=== PATIENT | male | born 1995 | race Caucasian/White ===

== ENCOUNTER 2017-01-21 20:49 | Emergency (ER) | payer OTHER ==
[~2017-01-21] VITALS: Ht 185.4 cm; Wt 96.2 kg
[2017-01-21 21:10] VITALS: BP 166/81
--- NOTE | 2017-01-21 21:49 | RADIOLOGY REPORT ---
EXAMINATION: Left fifth finger CLINICAL INFORMATION: Crush injury. Swelling. Nail avulsion COMPARISON: None TECHNIQUE: Three views of the left fifth finger. FINDINGS: There is a bandage over the left fifth finger distally. No fracture. No dislocation. Multiple small radiopaque foreign bodies seen over the nailbed IMPRESSION: Multiple small radiopaque foreign body seen over the nailbed. No acute osseous abnormality.
--- NOTE | 2017-01-21 21:55 | ED HAND/WRIST INJURY COMPLAINT ---
History of Present Illness General Chief Complaint: General Adult Stated Complaint: "LT PINK NAIL RIPPED OFF" Source: patient, family Exam Limitations: no limitations Vital Signs & Intake/Output Vital Signs & Intake/Output Vital Signs Date Time Temp Pulse Resp B/P B/P Pulse O2 O2 Flow FiO2 Mean Ox Delivery Rate 01/210 98.6 70 18 166/81 98 Room Air ED Intake and Output 01/22 0000 01/21 1200 Intake Total Output Total Balance Patient 212 lb Weight Weight Reported by Patient Measurement Method Allergies Coded Allergies: NO KNOWN ALLERGIES (01/21/17) Reconcile Medications No Known Home Medications Triage Note: 21M ARRIVES WITH CRUSH INJURY TO L PINKY FINGER AND AVULSION TO NAILBED WITH ENTIRE NAIL GONE. PAIN 1/10 AT THIS TIME. DECLINES PAIN MEDS OFFERED IN TRIAGE. 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 +SENSATION AND MOTION TO DIGIT. 02/14/08 WAS LAST TETANUS. +SENSATION AND MOTION TO DIGIT. 02/14/08 WAS LAST TETANUS. Triage Nurses Notes Reviewed? yes Occurred: just prior to arrival Duration: hour(s): (3-4), constant, continues in ED Timing: single episode today Injury Environment: home Severity: mild, moderate Severity Numbers: 1 Pain/Injury Location: Left: 5th finger. Context: crush Method of Injury: direct blow No Modifying Factors: none Associated Symptoms: swelling HPI: 21-year-old male with no sign of any past medical history presents for evaluation after a crush injury to the left fifth digit. Patient reports that at approximately 4 PM today he was trying to load a lawnmower into the back of his pickup truck. In doing so he accidentally jammed the handle of the lawnmower against his left fifth digit and the side of the truck bed causing a crush injury. Patient reports that the nail of the fifth digit was ripped off during the accident. Patient reports pain and bleeding at the nail bed of the fifth digit. Pain is worse with any type of movement or touching the area. He only rates the pain as a 1 out of 10 and has not taken any medicine for the pain. He denies any numbness, tingling, or any other associated symptoms. His last tetanus shot was in 2007. (ALEXIA WOOD PA-C) Past History Travel History Traveled to [place] past 21 day No Medical History Any Pertinent Medical History? see below for history Neurological: NONE EENT: NONE Cardiovascular: NONE Respiratory: NONE Gastrointestinal: NONE Hepatic: NONE Renal: NONE Musculoskeletal: NONE Psychiatric: NONE Endocrine: NONE Blood Disorders: NONE Cancer(s): NONE Surgical History Surgical History: none Psychosocial History What is your primary language Tajik Tobacco Use: Refused to answer Family History Hx Contributory? No (ISRAEL PA-C,ALEXIA) Review of Systems Review of Systems Constitutional: Reports: no symptoms. EENTM: Reports: no symptoms. Respiratory: Reports: no symptoms. Cardiovascular: Reports: no symptoms. GI: Reports: no symptoms. Genitourinary: Reports: no symptoms. Musculoskeletal: Reports: see HPI, joint pain (left 5th digit ). Skin: Reports: see HPI. Neurological/Psychological: Reports: no symptoms. Hematologic/Endocrine: Reports: no symptoms. Immunologic/Allergic: Reports: no symptoms. All Other Systems: Reviewed and Negative (ISRAEL MOLINA-Rodri,ALEXIA) Physical Exam Physical Exam Hand Left: normal range of motion, nail injury (5th digit), 5th finger (nail avulsion ) Hand Right: normal inspection, normal range of motion Comments: General: Hemodynamically stable. Afebrile. Well-developed well-nourished person in no acute distress. Head: Atraumatic, normocephalic Eyes: EOMI bilaterally, PERRLA, conjunctiva are not injected, no discharge, no nystagmus, fundus grossly normal bilaterally Nose: Atraumatic, no rhinorrhea, mucosa is not erythematous, no epistaxis. Sinuses are non-tender Ears: TM pearly rodrigues color bilaterally, external canal is clear, no discharge, hearing is normal Mouth: Appropriate dentition, no gingival bleeding, moist mucus membranes, no oral lesions, tonsils not erythematous or enlarged and free of exudate. Uvula rises midline. Neck: Supple, full active ROM, no lymphadenopathy, no midline tenderness to palpation, no thyromegaly, no tracheal deviation. Back: Non-tender, full active ROM, no scoliosis, no CVA tenderness Cardiovascular: regular rate and rhythm, no murmurs, rubs, or gallops. No JVD Respiratory: Chest is nontender. Regular respiratory rate and effort. No accessory muscle use. Lungs clear to auscultation bilaterally. Abdomen: Soft, non-tender, non-distended, no organomegaly. No rebound tenderness or guarding. Normoactive bowel sounds. Extremities: No edema. No gross deformities. No joint swelling. No calf swelling or tenderness. Full active and passive ROM. Strength 5/5 in upper and lower extremities. Peripheral pulses 2+ bilaterally, Patellar DTR 2+ Left hand fifth digit: The nail has been completely avulsed. There is no signs of nail bed laceration or foreign bodies. Full range of motion of the fifth digit is intact. Neurovascular supply is intact. Neuro: No confusion. Motor and sensory function is intact. Appropriate gait. Cerebellar function intact. Skin: Warm and dry. Appropriate turgor. No lesions or bruising. No appreciable rash on exposed skin. (ISRAEL SANCHEZ,ALEXIA) Progress Differential Diagnosis: contusion, dislocation, fracture, sprain, tenosynovitis, avulsion of nail, retained foreign body Plan of Care: X-rays negative for fracture but does show a radiopaque foreign body over the nail bed. Digital block was applied to the fifth left digit for pain control in order to better explore the wound. There is no nail bed laceration or signs of radiopaque foreign body on exam. The area was flushed with a liter of sterile saline. Betadine was applied bacitracin applied. Sterile dressing applied Tetanus updated educated patient about wound care. Advised patient to make a follow-up appointment with a plastic surgeon this coming week for a wound check. Discussed plan of care with patient and father and they agree with the plan. Patient is nontoxic apearing at discharge. Diagnostic Imaging: Viewed by Me: Radiology Read. Comments: PATIENT: CIRO POP PRESENT AGE: 21 PATIENT ACCOUNT NO: [id number] : 96 LOCATION: [facility] ORDERING PHYSICIAN: ALEXIA WOOD PA-C SERVICE DATE: 01/21/17 EXAM TYPE: RAD - XRY-FINGERS, LEFT EXAMINATION: Left fifth finger CLINICAL INFORMATION: Crush injury. Swelling. Nail avulsion COMPARISON: None TECHNIQUE: Three views of the left fifth finger. FINDINGS: There is a bandage over the left fifth finger distally. No fracture. No dislocation. Multiple small radiopaque foreign bodies seen over the nailbed IMPRESSION: Multiple small radiopaque foreign body seen over the nailbed. No acute osseous abnormality. DICTATED BY: ALLAN DUCKWORTH MD DATE/TIME DICTATED:01/21/172142 CHEESE SUPERVISOR:LALA DATE/TIME TRANSCRIBED:01/21/172142 CONFIDENTIAL, DO NOT COPY WITHOUT APPROPRIATE AUTHORIZATION. <Electronically signed in Other Vendor System> SIGNED BY: ALLAN DUCKWORTH MD 01/21/172148 (ALEXIA WOOD PA-C) Departure Departure Disposition: HOME OR SELF CARE Condition: Stable Clinical Impression Primary Impression: Nail avulsion, finger Qualifiers: Encounter type: initial encounter Qualified Code: S61.309A - Unspecified open wound of unspecified finger with damage to nail, initial encounter Referrals: KEE GUSMAN,DEBORAH ODONNELL MD,ESTRADA Archer (PCP/Family) Additional Instructions: Rest, keep the area clean and dry. Change dressing once daily or more frequently if the dressing becomes soiled or saturated with blood. Apply bacitracin once daily for the next 3 days only. Wear gloves while you are at work. Make a follow-up appointment with a plastic surgeon as soon as possible. See your primary care doctor for wound check at the end of the week. Watch out for signs of infection such as redness swelling discharge or pain. Return to the emergency department with any concerns. Please go over all results of today's visit with your primary care doctor. Contact your primary care doctor to let them know you were here in the emergency room. There may be nonspecific findings which may not be related to your visit today here in the emergency room but may require further evaluation and chronic monitoring by your primary care doctor. If you had a laceration today the chance of foreign body always remains. You should follow-up with your primary care doctor for recheck in 3-5 days for a wound check. If you had an x-ray done there is a chance that a fracture could have been missed on initial read and you should follow-up with your primary care doctor for repeat x-rays if symptoms persist. If your blood pressure was elevated here in the emergency room please have rechecked by her primary care doctor within the next 48 hours by your primary care doctor. If you were prescribed a narcotic here in the emergency room or any type of controlled substances you're not allowed to drive while taking this medication or operate any type of heavy machinery. Narcotics can make you feel lightheaded dizziness nausea and can cause constipation. You may need to picket labor [employer] a stool softener. Thank you for choosing [facility] emergency room. Please return to the emergency room immediately if you have any other concerns worsening of symptoms. Departure Forms: Customer Survey General Discharge Information Prescriptions: Current Visit Scripts No Known Home Medications (ALEXIA WOOD PA-C) PA/MILITARY SOURCE OPERATIONS SPECIALIST Co-Sign Statement Statement: ED Attending supervision documentation- [] I saw and evaluated the patient. I have also reviewed all the pertinent lab results and diagnostic results. I agree with the findings and the plan of care as documented in the PA's/MILITARY SOURCE OPERATIONS SPECIALIST's documentation. [X] I have reviewed the ED Record and agree with the PA's/MILITARY SOURCE OPERATIONS SPECIALIST's documentation. [] Additions or exceptions (if any) to the PAs/MILITARY SOURCE OPERATIONS SPECIALIST's note and plan are summarized below: [] (YUAN GUSMAN,SUHAS) Procedures Additional Procedures Additional Procedures: left hand fifth digit digital block Progress: consent obtained There is clean with alcohol. 2 mL of 1% lidocaine without epi was applied to the base of each side of the fifth digit. Patient tolerated well without immediate Location. (ALEXIA WOOD PA-C)
== END 2017-01-21 22:38 ==
LOC: ERH 20:49
DX: S67.197A Crushing injury of left little finger, initial encounter (principal); W23.0XXA Caught, crushed, jammed, or pinched between moving objects, initial encounter; Y92.9 Unspecified place or not applicable; Y93.9 Activity, unspecified
CPT/HCPCS: 73140-LT; 90714